=== PATIENT | male | born 1980 | race Caucasian/White ===

== ENCOUNTER 2018-01-10 14:20 | Emergency (ER) | payer OTHER ==
[2018-01-10 14:52] VITALS: BMI 27.7
[2018-01-10] MEDS ORDERED: Lidocaine 1% Inj (20ml) INFIL STA (15:15)
[2018-01-10] MEDS ORDERED: Bacitracin 500 Units/gm Oint Foilpak UD TOP STA (15:15)
[2018-01-10] MEDS ORDERED: Tetanus/Diphtheria Toxoids 0.5 ml Syringe IM ONE ×2 (15:15→15:35)
[2018-01-10] MEDS ORDERED: Lidocaine Hydrochloride 5 ML INJ ONE (15:35)
[2018-01-10] MEDS ORDERED: Bacitracin 500 Units/gm Oint Foilpak UD ONE (15:35)
[2018-01-10 16:14] VITALS: BP 118/63; PULSE 58; RESP 18; TEMP 97.8; O2SAT 99
--- NOTE | 2018-01-10 16:14 | C.PDOC ---
History Of Present Illness 37yo male, comes to ER reporting a head injury resulting in a laceration, sustained prior to arrival. Patient states he was in his kitchen looking for something when he hit his head against a cabinet, sustaining the laceration. He denies any nausea, vomiting, vision changes, weakness or numbness. No other complaints. Time Seen by Provider: 01/10/18 15:12 Chief Complaint (Nursing): Abnormal Skin Integrity History Per: Patient History/Exam Limitations: no limitations Onset/Duration Of Symptoms: Mins Current Symptoms Are (Timing): Still Present Quality Of Symptoms: Painful Additional History Per: Patient Past Medical History Reviewed: Historical Data, Nursing Documentation, Vital Signs - Medical History PMH: No Chronic Diseases Surgical History: No Surg Hx Family History: States: No Known Family Hx - Social History Hx Alcohol Use: No Hx Substance Use: No Review Of Systems Eyes: Negative for: Vision Change Gastrointestinal: Negative for: Nausea, Vomiting Skin: Positive for: Other (laceration to parietal scalp) Neurological: Negative for: Weakness, Numbness Physical Exam - Physical Exam Appears: Non-toxic, No Acute Distress Skin: Warm, Dry Head: Normacephalic, Laceration (5cm laceration to parietal scalp; no active bleeding) Eye(s): bilateral: Normal Inspection Ear(s): Bilateral: Normal Neck: Supple Chest: Symmetrical Cardiovascular: Rhythm Regular Respiratory: Normal Breath Sounds Neurological/Psych: Oriented x3, Normal Speech, Normal Cognition, Normal Motor, Normal Sensation ED Course And Treatment O2 Sat by Pulse Oximetry: 99 (RA) Pulse Ox Interpretation: Normal Progress Note: Patient given tetanus booster. Lidocaine 1% used and laceration repaired with alexandra. Wound cleaned, bacitracin and sterile dressing applied. Patient informed on wound care and instructed to follow up in 7-10 days for staple removal. Laceration - Laceration Repair Scalp Wound Length (In cm): 4 Description Of Wound: Linear Wound Cleansed With: Sterile Saline Anesthesia: Lidocaine 1% Wound Examination: Irrigated With Saline, No FB With Wound Exploration Wound Closure: Alexandra (7) Wound Complexity: Simple Disposition - Disposition Disposition: HOME/ ROUTINE Disposition Time: 16:13 Condition: STABLE Additional Instructions: Follow up with your PMD within 2-3 days. Return to ED if feel worse. Staple removal in 7-8 days. Prescriptions: Bacitracin OINT 1 applic TP TID #45 g Instructions: Laceration Repair With Alexandra (DC) Forms: [facility] (Portuguese), Work Excuse - Clinical Impression Clinical Impression: Scalp laceration - PA / PARTNER / Resident Statement MD/DO has reviewed & agrees with the documentation as recorded. - Scribe Statement The provider has reviewed the documentation as recorded by the Scribe Alexandra Wild Provider Attestation: All medical record entries made by the Scribe were at my direction and personally dictated by me. I have reviewed the chart and agree that the record accurately reflects my personal performance of the history, physical exam, medical decision making, and the department course for this patient. I have also personally directed, reviewed, and agree with the discharge instructions and disposition.
== END 2018-01-10 16:35 | disposition home or self-care (01) ==
LOC: C.ER 14:20
DX: S01.01XA Laceration without foreign body of scalp, initial encounter (principal); W22.8XXA Striking against or struck by other objects, initial encounter

== ENCOUNTER 2018-01-17 11:39 | Emergency (ER) | payer OTHER ==
[2018-01-17 11:39] VITALS: BMI 27.7
[2018-01-17 11:51] VITALS: BP 136/87; PULSE 56; TEMP 98.4; O2SAT 99
--- NOTE | 2018-01-17 12:19 | C.PDOC ---
History Of Present Illness 37 year old male presents to the ER for staple removal from scalp s/p repair on 01/10/18 after hitting his head on a cabinet. Denies fever, headache, vomiting, redness, bleeding, or discharge. Time Seen by Provider: 01/17/18 11:54 Chief Complaint (Nursing): Suture/Staple Removal History Per: Patient History/Exam Limitations: no limitations Onset/Duration Of Symptoms: Days Ago (7), Laceration Current Symptoms Are (Timing): Better Recent travel outside of the [place]: No Past Medical History Reviewed: Historical Data, Nursing Documentation, Vital Signs Vital Signs: Last Vital Signs Temp 98.4 F 01/17/18 11:49 Pulse 56 L 01/17/18 11:49 Resp 16 01/17/18 11:49 BP 136/87 01/17/18 11:49 Pulse Ox 99 01/17/18 11:49 Family History: States: Unknown Family Hx - Social History Hx Alcohol Use: No Hx Substance Use: No Review Of Systems Constitutional: Negative for: Fever, Chills Skin: Positive for: Other (Brook in place. No redness, bleeding, or discharge) Physical Exam - Physical Exam Appears: Well, Non-toxic, No Acute Distress Skin: Warm, Dry Head: Normacephalic, Other (Brook in place. No bleeding, discharge, or erythema.) Eye(s): bilateral: Normal Inspection, EOMI Nose: Normal Neck: Normal ROM, Supple Chest: Symmetrical Respiratory: No Accessory Muscle Use Extremity: Normal ROM Neurological/Psych: Oriented x3, Normal Speech, Normal Cognition ED Course And Treatment O2 Sat by Pulse Oximetry: 99 (Room air) Pulse Ox Interpretation: Normal Progress Note: Patient tolerated staple removal without any difficulty, he is resting comfortably in the ER in no acute distress, vitals are stable, will discharge home with instructions to follow up with PMD. 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 - Scribe Statement The provider has reviewed the documentation as recorded by the Scribe Srinivas Ann All medical record entries made by the Scribe were at my direction and personally dictated by me. I have reviewed the chart and agree that the record accurately reflects my personal performance of the history, physical exam, medical decision making, and the department course for this patient. I have also personally directed, reviewed, and agree with the discharge instructions and disposition.
[2018-01-17 12:38] VITALS: RESP 18
== END 2018-01-17 12:33 | disposition home or self-care (01) ==
LOC: C.ER 11:39
DX: Z48.02 Encounter for removal of sutures (principal)

== ENCOUNTER 2018-02-23 17:55 | Emergency (ER) | payer OTHER ==
[2018-02-23 17:55] VITALS: BMI 27.7
[2018-02-23 18:02] VITALS: BP 120/74; PULSE 65; RESP 20; TEMP 97.9; O2SAT 98
--- NOTE | 2018-02-23 18:29 | C.PDOC ---
History Of Present Illness 37 year old male presents to the ED for evaluation. Patient states he recently sustained a laceration to his parietal scalp region. She area was stapled and the alexandra were removed around 3 weeks ago. Patient presents to the ED, stating the scar appears pink and he wants to know if this is normal. He denies fever, chills, pain, drainage or swelling to the area. Time Seen by Provider: 02/23/18 18:13 Chief Complaint (Nursing): Abnormal Skin Integrity History Per: Patient History/Exam Limitations: no limitations Onset/Duration Of Symptoms: Days Current Symptoms Are (Timing): Better Quality Of Symptoms: denies: Painful, Swollen, Draining Additional History Per: Patient Past Medical History Reviewed: Historical Data, Nursing Documentation, Vital Signs Vital Signs: Last Vital Signs Temp 97.9 F 02/23/18 17:58 Pulse 65 02/23/18 17:58 Resp 20 02/23/18 17:58 BP 120/74 02/23/18 17:58 Pulse Ox 98 02/23/18 17:58 - Medical History PMH: No Chronic Diseases Surgical History: No Surg Hx Family History: States: Unknown Family Hx - Social History Hx Alcohol Use: No Hx Substance Use: No - Immunization History Hx Tetanus Toxoid Vaccination: Yes Hx Influenza Vaccination: Yes Hx Pneumococcal Vaccination: No Review Of Systems Constitutional: Negative for: Fever, Chills Skin: Positive for: Other (evaluation of wound to parietal scalp ) Physical Exam - Physical Exam Appears: Non-toxic, No Acute Distress Skin: Normal Color, Warm, Dry Head: Other (well-healing wound to parietal scalp region. no erythema, swelling or signs of infection ) Extremity: Normal ROM Neurological/Psych: Oriented x3, Normal Speech, Normal Cognition ED Course And Treatment O2 Sat by Pulse Oximetry: 98 (on RA) Pulse Ox Interpretation: Normal Progress Note: Patient is reassurred that is wound is well-healing with no signs of infection. He is stable for discharge and is advised to follow up with his PMD within 1-2 days for further evaluation. Disposition - Disposition Disposition: HOME/ ROUTINE Disposition Time: 18:27 Condition: STABLE Additional Instructions: Follow up with your PMD within 1-2 days. 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 - Scribe Statement The provider has reviewed the documentation as recorded by the Scribe (Isabella Casper) All medical record entries made by the Scribe were at my direction and personally dictated by me. I have reviewed the chart and agree that the record accurately reflects my personal performance of the history, physical exam, medical decision making, and the department course for this patient. I have also personally directed, reviewed, and agree with the discharge instructions and disposition.
== END 2018-02-23 18:34 | disposition home or self-care (01) ==
LOC: C.ER 17:55
DX: S01.01XD Laceration without foreign body of scalp, subsequent encounter (principal); W22.8XXD Striking against or struck by other objects, subsequent encounter